=== PATIENT | female | born 1995 | race Caucasian/White ===

== ENCOUNTER 2023-10-13 09:30 | Observation (INO) ==
[2023-10-13] MEDS ORDERED: VERSED ONE (09:58)
[2023-10-13] MEDS ORDERED: FENTANYL VIAL INJ 100 mcg ONE (09:58)
[2023-10-13] MEDS ORDERED: MARCAINE 0.25% INJ ONE (09:59)
[2023-10-13] MEDS ORDERED: ZOFRAN INJ 4 MG VIAL ONE (10:01)
[2023-10-13] MEDS ORDERED: REGLAN INJ 10 MG VIAL ONE (10:01)
[2023-10-13] MEDS ORDERED: PEPCID 20 MG VIAL ONE (10:01)
[2023-10-13] MEDS ORDERED: DIPRIVAN VIAL 20 ML ONE (10:02)
[2023-10-13] MEDS ORDERED: ZEMURON 100 MG VIAL ONE (10:02)
[2023-10-13] MEDS ORDERED: BRIDION ONE (10:02)
[2023-10-13] MEDS ORDERED: LR 1,000 ML IV 1,000 ML IV ONE ×2 (10:02→14:52)
[2023-10-13] MEDS ORDERED: ANCEF VIAL 1 GRAM ONE (10:02)
[2023-10-13] MEDS ORDERED: NS 100 ML IV 100 ML ONE (10:02)
[2023-10-13] MEDS ORDERED: XYLOCAINE 2 % (PLAIN) ONE (10:03)
[2023-10-13] MEDS ORDERED: ZOFRAN INJ 4 MG VIAL IVP PRN ×2 (10:24→15:03)
[2023-10-13] MEDS ORDERED: BENADRYL INJ 50 MG VIAL IVP PRN ×2 (10:24→16:07)
[2023-10-13] MEDS ORDERED: BARHEMSYS INJ IVP PRN (10:24)
[2023-10-13] MEDS ORDERED: SUPRANE ONE (10:29)
[2023-10-13] MEDS ORDERED: NEO-SYNEPHRINE INJ ONE (10:54)
[2023-10-13] MEDS ORDERED: TORADOL 30 MG VIAL ONE (11:48)
[2023-10-13] MEDS ORDERED: OFIRMEV IV 1000 MG VIAL 1,000 MG/100 ML VIAL IV ONE (11:49)
[2023-10-13] MEDS ORDERED: DILAUDID INJ ONE (12:33)
[2023-10-13] MEDS: DILAUDID INJ IVP PRN ×4 (12:35→19:45)
--- NOTE | 2023-10-13 13:17 | RAD ---
EXAM:CHEST, 1 VIEWHISTORY:POSSIBLE ASPIRATION POST OP SURGERY;COMPARISON:05/26/2021.TECHNIQUE: AP view of the chestFINDINGS:The cardiac and mediastinal contours are normal in size. The lungs are hyperexpanded. There are bilateral airspace opacities worst in the mid to lower lungs. No definite pleural effusion or pneumothorax.IMPRESSION:Bilateral airspace opacities in the mid to lower lungs are nonspecific but can be seen with aspiration. Recommend attention on short interval follow-up.Hyperexpanded lungs can be seen with a good inspiratory effort, emphysema, and asthma in this age group.THIS IS AN ELECTRONICALLY VERIFIED FINAL REPORT10/13/2023 1:13 PM - Electronically signed by Toney Malhotra MD
[2023-10-13] MEDS ORDERED: PERCOCET TAB 5/325 MG PO PRN (15:03)
[2023-10-13] MEDS ORDERED: TYLENOL 325 MG TAB PO PRN (15:03)
[2023-10-13] MEDS: LR 1,000 ML IV 1,000 ML IV SCH ×2 (15:36→23:44)
[2023-10-13] MEDS: CLEOCIN 600 MG IV PREMIX 600 MG/50 ML BAG IV SCH ×2 (15:36→21:44)
[2023-10-13] MEDS: PERCOCET TAB 5/325 MG PO PRN ×2 (17:20→21:35)
[2023-10-13] MEDS: DUONEB 0.5 MG/3 MG (3 mL) NEB SCH ×2 (17:33→20:15)
[2023-10-13 17:56] VITALS: BMI 22.1
[2023-10-13] MEDS: NOZIN NASAL SANITIZER TP SCH (20:43)
[2023-10-13] MEDS: ASPIRIN PO SCH (20:50)
[2023-10-13] MEDS: COLACE CAP 100 MG PO SCH (20:50)
[2023-10-14] MEDS: DILAUDID INJ IVP PRN ×3 (00:37→13:45)
[2023-10-14] MEDS: PERCOCET TAB 5/325 MG PO PRN (02:34)
[2023-10-14 05:35] LABS: BASOPHILS % (AUTO) 0.1 % (0.2-1.0); HEMATOCRIT 25.4 % (36.0-47.0); LYMPHOCYTES # (AUTO) 0.3 X10^3/uL (1.3-2.9); MEAN CORPUSCULAR HEMOGLOBIN 21.6 pg (27.0-34.0); MEAN CORPUSCULAR HGB CONC 31.4 g/dL (33.0-35.0); MEAN CORPUSCULAR VOLUME 68.9 fL (80.0-100.0); MEAN PLATELET VOLUME 7.7 fL (7.4-11.0); MONOCYTES # (AUTO) 0.3 x10^3/uL (0.3-0.8); MONOCYTES % (AUTO) 4.1 % (0.0-13.0); NEUTROPHILS # (AUTO) 5.7 x10^3/uL (2.2-4.8); NEUTROPHILS % (AUTO) 90.8 % (42.0-75.0); PLATELET COUNT 184 X10^3/uL (150.0-450.0); RED BLOOD COUNT 3.68 X10^6/uL (3.5-5.4); RED CELL DISTRIBUTION WIDTH 15.7 % (11.6-16.5); WHITE BLOOD COUNT 6.2 X10^3/uL (3.6-10.0)
[2023-10-14 05:56] LABS: ALANINE AMINOTRANSFERASE < 6 Units/L (12-78); ALBUMIN 2.6 g/dL (3.4-5.0); ALKALINE PHOSPHATASE 28 Units/L (46-116); ASPARTATE AMINO TRANSFERASE 13 Units/L (15-37); BLOOD UREA NITROGEN 8 mg/dL (7-18); CALCIUM 7.6 mg/dL (8.5-10.1); CARBON DIOXIDE 26.1 mmol/L (21-32); CHLORIDE 105 mmol/L (98-107); COR CA(FOR HYPOALB) 8.7 mg/dL (8.5-10.1); CREATININE 0.54 mg/dL (0.55-1.02); GLUCOSE 101 mg/dL (65-99); POTASSIUM 3.5 mmol/L (3.5-5.1); SODIUM 137 mmol/L (136-145); TOTAL PROTEIN 5.5 g/dL (6.4-8.2); eGFR NON BLACK RACES > 60 (>60)
[2023-10-14 06:28] LABS: BAND NEUTROPHILS % 13 % (0-10); HYPOCHROMASIA 2+; MICROCYTOSIS 1+; PLATELET MORPHOLOGY COMMENT NORMAL (NORMAL)
[2023-10-14] MEDS ORDERED: CONSULT PHARMACY - POTASSIUM & MAGNESIUM XX SCH (07:00)
--- NOTE | 2023-10-14 07:47 | RAD ---
EXAM:CHEST, 1 VIEWHISTORY:R/O pna; Assess for pneumoniaCOMPARISON:Chest radiographs dated October 13, 2023FINDINGS:The trachea is midline. The cardiac silhouette is stable. There are worsening bilateral airspace and ground-glass opacity seen throughout the lung castano which are most severe in the midlung zones and lower lobes which could reflect atypical edema or a diffuse infection/pneumonia. This should be followed up to complete resolution. Pneumonia/infection would be favored. No other cardiopulmonary changes are appreciated, otherwise. There is no pneumothorax identified on this exam. The bony thorax is unremarkable.IMPRESSION:Worsening bilateral airspace and ground-glass opacities seen throughout the lung castano, as discussed above.THIS IS AN ELECTRONICALLY VERIFIED FINAL REPORT10/14/2023 7:43 AM - Electronically signed by Andres Hanley
--- NOTE | 2023-10-14 07:56 | NOTE.SOAP ---
Soap Note Note for Day of Date of Exam: 10/14/23 Subjective Data Subjective Data: 28F who underwent an ankle scope with ligament repair on 10/13/2023 was admitted to r/o aspiration and monitor O2 stat levels overnight. Patient doing well this am, she was on oxygen and pain in the ankle. She has not been given pain medication due to respiratory status. She states that she has not gotten ice for her ankle as well. Denies any calf pain, nausea, vomiting, fever or chills Objective Data Objective Data: Dressing c/d/i without strikethrough CFT<3s to all digits, able to move toes Assessment Assessment: 28F s/p R ankle arthroscopy with lateral ankle and high ankle stabilization on 10/13/2023 with possible aspiration Plan Plan: Patient was seen this am on oxygen, waiting on most recent chest xray to determine her status. If all is well with her chest xray, she is okay for disc harge from a podiatry standpoint. She will need to get a chest xray on Monday and follow up with Dr. Donaldson next week. Scripts for pain medication, aspirin and zofran in chart please dispense with post op instructions. Will follow
[2023-10-14] MEDS: LR 1,000 ML IV 1,000 ML IV SCH ×3 (08:37→23:28)
[2023-10-14] MEDS: DUONEB 0.5 MG/3 MG (3 mL) NEB SCH ×4 (08:44→20:34)
[2023-10-14] MEDS ORDERED: LOVENOX INJ 40 MG SYR SC SCH (09:00)
[2023-10-14] MEDS ORDERED: K-DUR TAB 20 MEQ PO SCH (09:00)
[2023-10-14] MEDS: ASPIRIN PO SCH ×2 (09:45→21:00)
[2023-10-14] MEDS: NOZIN NASAL SANITIZER TP SCH ×2 (09:46→21:28)
[2023-10-14] MEDS: CLEOCIN 600 MG IV PREMIX 600 MG/50 ML BAG IV SCH ×2 (13:45→21:27)
[2023-10-14] MEDS ORDERED: INFeD or DEXFERRUM 25 MG in NS 100 ML IV 100 ML IV ONE (15:00)
[2023-10-14] MEDS ORDERED: NS 500 ML IV 500 ML IV ONE (15:38)
[2023-10-14] MEDS ORDERED: INFeD or DEXFERRUM 975 MG in NS 500 ML IV 500 ML IV ONE (16:00)
[2023-10-14] MEDS ORDERED: TORADOL 60 MG VIAL IM ONE (19:15)
[2023-10-14] MEDS ORDERED: DILAUDID INJ IVP PRN (19:17)
[2023-10-14] MEDS: ZOFRAN INJ 4 MG VIAL IVP PRN (19:36)
[2023-10-14] MEDS: COLACE CAP 100 MG PO SCH (21:00)
[2023-10-14 23:28] VITALS: RESP 18
[2023-10-15] MEDS: CLEOCIN 600 MG IV PREMIX 600 MG/50 ML BAG IV SCH ×2 (05:10→07:13)
[2023-10-15 06:07] LABS: BASOPHILS % (AUTO) 0.2 % (0.2-1.0); HEMOGLOBIN 7.7 g/dL (12.0-16.0); LYMPHOCYTES # (AUTO) 0.8 X10^3/uL (1.3-2.9); MEAN CORPUSCULAR HEMOGLOBIN 21.7 pg (27.0-34.0); MEAN CORPUSCULAR HGB CONC 31.4 g/dL (33.0-35.0); MONOCYTES # (AUTO) 0.3 x10^3/uL (0.3-0.8)
[2023-10-15 06:13] LABS: EOSINOPHILS # (AUTO) 0.1 x10^3/uL (0.0-0.2); HEMATOCRIT 24.5 % (36.0-47.0); LYMPHOCYTES % (AUTO) 15.4 % (21.0-51.0); MEAN CORPUSCULAR VOLUME 69.1 fL (80.0-100.0); NEUTROPHILS % (AUTO) 78.4 % (42.0-75.0); PLATELET COUNT 145 X10^3/uL (150.0-450.0); RED BLOOD COUNT 3.55 X10^6/uL (3.5-5.4); WHITE BLOOD COUNT 5.1 X10^3/uL (3.6-10.0)
[2023-10-15 06:26] LABS: ALBUMIN 2.6 g/dL (3.4-5.0); ALKALINE PHOSPHATASE 35 Units/L (46-116); BLOOD UREA NITROGEN 6 mg/dL (7-18); CALCIUM 8.1 mg/dL (8.5-10.1); CARBON DIOXIDE 30.3 mmol/L (21-32); CHLORIDE 106 mmol/L (98-107); COR CA(FOR HYPOALB) 9.2 mg/dL (8.5-10.1); CREATININE 0.52 mg/dL (0.55-1.02); GLUCOSE 79 mg/dL (65-99); POTASSIUM 3.1 mmol/L (3.5-5.1); SODIUM 140 mmol/L (136-145); TOTAL PROTEIN 5.9 g/dL (6.4-8.2); eGFR NON BLACK RACES > 60 (>60)
[2023-10-15 06:36] LABS: HYPOCHROMASIA 2+; MICROCYTOSIS 1+; PLATELET MORPHOLOGY COMMENT NORMAL (NORMAL)
[2023-10-15 07:21] LABS: ALANINE AMINOTRANSFERASE < 6 Units/L (12-78); ASPARTATE AMINO TRANSFERASE 14 Units/L (15-37)
--- NOTE | 2023-10-15 07:24 | RAD ---
EXAM:AP chestHISTORY:Aspiration pneumoniaCOMPARISON:10/14/2023FINDINGS:H eart size remains normal. There is no definite change in extent or distribution in bilateral airspace pulmonary disease. The upper lobes remain relatively uninvolved. No complicating pneumothorax or developing large pleural effusion is evident.IMPRESSION:Stable appearance of bilateral pneumonia.THIS IS AN ELECTRONICALLY VERIFIED FINAL REPORT10/15/2023 7:21 AM - Electronically signed by Mike Caal MD
--- NOTE | 2023-10-15 07:29 | NOTE.SOAP ---
Soap Note Note for Day of Date of Exam: 10/15/23 Subjective Data Subjective Data: 28F who underwent an ankle scope with ligament repair on 10/13/2023 POD2, doing better this am. She was on an oxygen mask when i saw her in the room but when i spoke to the charge nurse, she stated that she should be on nasal cannula. She did well getting up yesterday going to the restroom. Patient states that pain in foot is better but she is scared to take any pills and only wants IV meds. Denies any calf pain, nausea, vomiting, fever or chills Objective Data Objective Data: Dressing c/d/i without strikethrough CFT<3s to all digits, able to move toes Assessment Assessment: 28F s/p R ankle arthroscopy with lateral ankle and high ankle stabilization on 10/13/2023 with possible aspiration Plan Plan: Patient was seen this am on oxygen, waiting on most recent chest xray to determine her status. If all is well with her chest xray, she is okay for discharge from a podiatry standpoint. Script for chest xray tomorrow if she does go home today. She is to follow up with Dr. Donaldson this week at her appointment time. Scripts for pain medication, aspirin and zofran in chart please dispense with post op instructions. Will follow
[2023-10-15] MEDS: ASPIRIN PO SCH (08:25)
[2023-10-15] MEDS: NOZIN NASAL SANITIZER TP SCH (08:25)
[2023-10-15] MEDS: LR 1,000 ML IV 1,000 ML IV SCH (08:25)
[2023-10-15] MEDS: DUONEB 0.5 MG/3 MG (3 mL) NEB SCH ×2 (09:15→12:48)
[2023-10-15] MEDS: PERCOCET TAB 5/325 MG PO PRN ×2 (09:19→14:10)
[2023-10-15] MEDS: ZOFRAN INJ 4 MG VIAL IVP PRN (09:23)
[2023-10-15 12:01] VITALS: BP 97/59; PULSE 101; TEMP 97.9; O2SAT 99
[2023-10-15] MEDS ORDERED: CLEOCIN PO ONE (13:35)
== END 2023-10-15 14:00 | disposition home or self-care (01) ==
LOC: MED/SURG 09:30 → SURG1 09:30
PROVIDERS: ADMIT Obstetrics & Gynecology Obstetrics; ATTEND Obstetrics & Gynecology Obstetrics
DX: S92.021A Displaced fracture of anterior process of right calcaneus, initial encounter for closed fracture; S93.491A Sprain of other ligament of right ankle, initial encounter; Y92.9 Unspecified place or not applicable; X58.XXXA Exposure to other specified factors, initial encounter; J68.0 Bronchitis and pneumonitis due to chemicals, gases, fumes and vapors; S93.431A Sprain of tibiofibular ligament of right ankle, initial encounter